=== PATIENT | female | born 1990 | race Caucasian/White ===

== ENCOUNTER → 2018-10-25 | Outpatient (CLI) | payer OTHER ==
[~2018-10-25] MED LIST: CITA20 PO; CYCL10 PO; MUSCLE RELAXER; Norco 5-325 Ta1 EACH PO; Pepcid20 MG PO; Zofran8 MG PO
== END ==
LOC: LAB 17:35 → LAB SHORT 17:35
DX: N89.8 Other specified noninflammatory disorders of vagina (principal)
CPT/HCPCS: 87070; 87147; 87205

== ENCOUNTER 2019-05-19 11:14 | Emergency (ER) | payer OTHER ==
[~2019-05-19] VITALS: Ht 157.5 cm; Wt 68.0 kg
[2019-05-19] MEDS ORDERED: IBUP400 PO (15:14)
== END 2019-05-19 15:57 | disposition home or self-care (01) ==
LOC: ER 11:14
DX: R51 Headache (principal); M54.2 Cervicalgia; Z88.2 Allergy status to sulfonamides
CPT/HCPCS: 96361; 96374; 96375; 99283-25; J0780; J1885; J7120

== ENCOUNTER 2019-05-27 10:20 | Emergency (ER) | payer OTHER ==
[~2019-05-27] VITALS: Ht 160 cm; Wt 68.0 kg
[~2019-05-27 10:20] MED LIST changes: +IBUP400 PO
[2019-05-27 11:21] LABS: BASOPHILS ABSOLUTE AUTO 0.03 K/mm3 (0.00-0.23); BASOPHILS PERCENT AUTO 0 % (0-2); EOSINOPHILS PERCENT AUTO 2 % (0-6); Hematocrit 48.8 % (33.0-51.0); Hemoglobin 15.6 g/dL (11.5-16.0); IMMATURE GRAN ABSOLUTE AUTO 0.01 K/mm3 (0.00-0.10); IMMATURE GRAN PERCENT AUTO 0 % (0-1); LYMPHOCYTES ABSOLUTE AUTO 2.09 K/mm3 (0.84-5.20); LYMPHOCYTES PERCENT AUTO 31 % (21-46); MONOCYTES ABSOLUTE AUTO 0.38 K/mm3 (0.16-1.47); MONOCYTES PERCENT AUTO 6 % (4-13); Mean Corpuscular HGB 29.5 pg (26.0-34.0); Mean Corpuscular Volume 92 fL (80-100); NEUTROPHILS ABSOLUTE AUTO 4.19 K/mm3 (1.96-9.15); NEUTROPHILS PERCENT AUTO 62 % (41-73); RDW Coefficient Variation 12.6 % (11.7-14.2); Red Blood Cell Count 5.28 M/mm3 (3.80-5.20)
[2019-05-27 11:26] LABS: Mean Platelet Volume 11.2 fL (9.1-12.4); Platelet Count 188 K/mm3 (150-400)
[2019-05-27 11:29] LABS: Alanine Aminotransfer (ALT/SGP 21 U/L (12-78); Albumin, Blood 3.9 g/dL (3.4-5.0); Alk Phos 46 U/L (50-136); Anion Gap 8 mmol/L (6-16); Aspartate Aminotrans (AST/SGOT 12 U/L (12-37); Bilirubin, Total 0.3 mg/dL (0.1-1.0); Blood Urea Nitrogen 16 mg/dL (8-24); Bun/Creatinine Ratio 20.6 (12.0-20.0); CO2, Blood 26 mmol/L (21-32); Calcium, Blood 8.9 mg/dL (8.5-10.1); Chloride, Blood 107 mmol/L (98-108); Creatinine, Blood 0.78 mg/dL (0.40-1.00); Globulin, Blood 4.1 g/dL (2.2-4.0); Glomerular Filtration Rate >60 (60-); Glucose, Blood 77 mg/dL (70-99); Potassium, Blood 3.9 mmol/L (3.5-5.5); Sodium, Blood 141 mmol/L (136-145)
[2019-05-27 11:45] LABS: CPK Creatine Kinase 83 U/L (26-193); Magnesium, Blood 2.1 mg/dL (1.6-2.4); Prolactin 5.8 ng/mL
[2019-05-27 11:50] LABS: Creatine Kinase MB <1.0 ng/mL (0.0-3.6); Creatine Kinase MB Index Unable to Calculate (0.0-4.0)
[2019-05-27 11:59] LABS: Source, Urine Clean Catch
[2019-05-27 12:04] LABS: Bilirubin, Urine Neg (Neg); Blood, Urine Neg (Neg); Glucose Qualitative, Urine Neg (Neg); Ketones, Urine Neg (Neg); Leukocyte Esterase, Urine Neg (Neg); Nitrite, Urine Neg (Neg); Protein, Urine Neg (Neg); Specific Gravity, Urine 1.015 (1.003-1.022); Urobilinogen, Urine NORM (Normal)
[2019-05-27 12:32] LABS: Appearance, Urine Clear (Clear); Color, Urine Yellow (P-Yellow)
[2019-05-27] MEDS ORDERED: TEMA7.5 PO (14:36)
== END 2019-05-27 14:41 | disposition home or self-care (01) ==
LOC: ER 10:20
PROVIDERS: Emergency Medicine
DX: M79.10 Myalgia, unspecified site (principal); Z88.8 Allergy status to other drugs, medicaments and biological substances
CPT/HCPCS: 36415; 80053; 81003; 82550; 82553; 83605; 83735; 84146; 85025; 96360; 96361; 99284-25; J7120

== ENCOUNTER 2020-10-15 22:41 | Emergency (ER) | payer OTHER ==
[~2020-10-15] VITALS: Ht 157.5 cm; Wt 77.1 kg
[~2020-10-15 22:41] MED LIST changes: +Cymbalta30 MG PO; +FIORINAL 50-321 EACH PO; +LAMOTRIGINE100 M1 PO; +TEMA7.5 PO; +ZANAFLEX4 M1 PO
== END 2020-10-15 23:57 | disposition home or self-care (01) ==
LOC: ER 22:41
DX: G43.909 Migraine, unspecified, not intractable, without status migrainosus (principal); Z88.8 Allergy status to other drugs, medicaments and biological substances; Z79.899 Other long term (current) drug therapy
CPT/HCPCS: 36415; 96374; 96375; 99283-25; J0780; J1200; J1885; J7030

== ENCOUNTER 2021-01-04 14:52 | Emergency (ER) | payer OTHER ==
[~2021-01-04] VITALS: Ht 157.5 cm; Wt 81.7 kg
== END 2021-01-04 16:36 | disposition home or self-care (01) ==
LOC: ER 14:52
DX: S90.112A Contusion of left great toe without damage to nail, initial encounter (principal); Z88.8 Allergy status to other drugs, medicaments and biological substances; Z79.899 Other long term (current) drug therapy; W20.8XXA Other cause of strike by thrown, projected or falling object, initial encounter; Y92.89 Other specified places as the place of occurrence of the external cause; Y99.0 Civilian activity done for income or pay
CPT/HCPCS: 73660; 99283-25

== ENCOUNTER 2021-01-13 23:19 | Emergency (ER) | payer OTHER ==
[~2021-01-13] VITALS: Ht 165.1 cm; Wt 99.8 kg
[2021-01-13] MEDS ORDERED: RIZATRIPTAN10 M3 PO (23:42)
== END 2021-01-14 02:53 | disposition home or self-care (01) ==
LOC: ER 23:19
DX: R51.9 Headache, unspecified (principal); Z88.8 Allergy status to other drugs, medicaments and biological substances; Z79.899 Other long term (current) drug therapy
CPT/HCPCS: 36415; 96374; 96375; 99283; J1200; J1885; J2405; J7030

== ENCOUNTER 2021-01-25 14:52 | Emergency (ER) | payer OTHER ==
[~2021-01-25] VITALS: Ht 160 cm; Wt 83.5 kg
[~2021-01-25 14:52] MED LIST changes: +RIZATRIPTAN10 M3 PO
== END 2021-01-25 20:59 | disposition home or self-care (01) ==
LOC: ER 14:52
DX: F41.9 Anxiety disorder, unspecified (principal); Z88.8 Allergy status to other drugs, medicaments and biological substances; Z79.899 Other long term (current) drug therapy
CPT/HCPCS: 99283; A9270

== ENCOUNTER 2021-06-24 05:37 | Emergency (ER) | payer OTHER ==
[~2021-06-24] VITALS: Ht 157.5 cm; Wt 81.7 kg
== END 2021-06-24 12:50 | disposition home or self-care (01) ==
LOC: ER 05:37
DX: G43.909 Migraine, unspecified, not intractable, without status migrainosus (principal)
CPT/HCPCS: 96372; 99283-25; J0780; J1200; J1885

== ENCOUNTER 2022-05-02 09:26 | Emergency (ER) | payer OTHER ==
[~2022-05-02] VITALS: Ht 157.5 cm; Wt 86.2 kg
== END 2022-05-02 11:31 | disposition home or self-care (01) ==
LOC: ER 09:26
DX: M43.6 Torticollis (principal); Z79.899 Other long term (current) drug therapy; Z88.8 Allergy status to other drugs, medicaments and biological substances
CPT/HCPCS: A9270; J1885

== ENCOUNTER → 2022-10-26 | Outpatient (CLI) | payer OTHER ==
[2022-10-27 10:54] LABS: Candida species (DNA Probe) Negative (NEGATIVE); G. vaginalis (DNA Probe) Negative (NEGATIVE); T. vaginalis (DNA Probe) Negative (NEGATIVE)
== END | disposition home or self-care (01) ==
LOC: LAB SHORT 15:34
PROVIDERS: Advanced Practice Midwife
DX: N76.0 Acute vaginitis (principal)
CPT/HCPCS: 87480; 87510; 87660

== ENCOUNTER 2023-06-26 19:07 | Emergency (ER) | payer OTHER ==
[~2023-06-26] VITALS: Ht 157.5 cm; Wt 90.7 kg
[2023-06-26 19:36] VITALS: BP 136/100
[2023-06-26] MEDS ORDERED: NEOPOLHCSU BOTHEARS (20:12)
== END 2023-06-26 20:25 | disposition home or self-care (01) ==
LOC: ER 19:07
DX: H60.92 Unspecified otitis externa, left ear (principal); Z88.8 Allergy status to other drugs, medicaments and biological substances; Z79.899 Other long term (current) drug therapy
CPT/HCPCS: A9270

== ENCOUNTER 2023-08-28 16:53 | Emergency (ER) | payer OTHER ==
[~2023-08-28] VITALS: Ht 157.5 cm; Wt 94.3 kg
[~2023-08-28 16:53] MED LIST changes: +NEOPOLHCSU BOTHEARS
[2023-08-28 17:05] VITALS: BP 143/94
[2023-08-28] MEDS ORDERED: LIDO700A20 TOP (19:11)
[2023-08-28] MEDS ORDERED: CYCL10 PO (19:11)
== END 2023-08-28 19:24 | disposition home or self-care (01) ==
LOC: ER 16:53
DX: M54.50 Low back pain, unspecified (principal); Z79.899 Other long term (current) drug therapy; Z88.8 Allergy status to other drugs, medicaments and biological substances
CPT/HCPCS: 96372; 99283-25; A9270; J1885

== ENCOUNTER 2023-12-24 08:53 | Emergency (ER) | payer OTHER ==
[~2023-12-24] VITALS: Ht 157.5 cm; Wt 93.9 kg
[~2023-12-24 08:53] MED LIST changes: +LIDO700A20 TOP
[2023-12-24 09:49] VITALS: BP 152/119
[2023-12-24] MEDS ORDERED: Floxin10 ML RIGHTEAR (10:22)
[2023-12-24] MEDS ORDERED: AMOX-CLAV 875-1 EAC5 PO (10:37)
== END 2023-12-24 10:35 | disposition home or self-care (01) ==
LOC: ER 08:53
DX: H66.41 Suppurative otitis media, unspecified, right ear (principal); H60.91 Unspecified otitis externa, right ear; R51.9 Headache, unspecified; Z97.4 Presence of external hearing-aid; Z88.8 Allergy status to other drugs, medicaments and biological substances
CPT/HCPCS: 99283

== ENCOUNTER 2024-04-25 04:04 | Emergency (ER) | payer OTHER ==
[~2024-04-25] VITALS: Ht 157.5 cm; Wt 90.7 kg
[~2024-04-25 04:04] MED LIST changes: +AMOX-CLAV 875-1 EAC5 PO; +Floxin10 ML RIGHTEAR
[2024-04-25 04:17] VITALS: BP 154/94
[2024-04-25] MEDS ORDERED: Acetaminophen 500 MG Tab PO ONE (04:55)
[2024-04-25] MEDS ORDERED: DIAZ2 PO (04:55)
[2024-04-25] MEDS ORDERED: Diazepam 5 MG Tab PO ONE (04:55)
[2024-04-25] MEDS ORDERED: ACET500 PO (04:55)
[2024-04-25] MEDS ORDERED: Lidocaine 4% 1 Patch TOP ONE (04:55)
[2024-04-25] MEDS ORDERED: PredniSONE 20 MG Tab PO ONE (04:55)
[2024-04-25] MEDS ORDERED: DELTASONE20 MG PO (04:55)
[2024-04-25] MEDS ORDERED: LIDO700A20 TOP (04:56)
== END 2024-04-25 05:06 | disposition home or self-care (01) ==
LOC: ER 04:04
DX: M62.830 Muscle spasm of back (principal); G43.909 Migraine, unspecified, not intractable, without status migrainosus; Z79.899 Other long term (current) drug therapy; Z88.8 Allergy status to other drugs, medicaments and biological substances
CPT/HCPCS: 99282; A9270; J7512

== ENCOUNTER 2024-06-02 22:40 | Emergency (ER) | payer OTHER ==
[~2024-06-02] VITALS: Ht 157.5 cm; Wt 90.7 kg
[~2024-06-02 22:40] MED LIST changes: +ACET500 PO; +DELTASONE20 MG PO; +DIAZ2 PO
[2024-06-02] MEDS ORDERED: Prochlorperazine Edisylate 10 mg Vial IV ONE (23:00)
[2024-06-02] MEDS ORDERED: NS 1,000 ML IV SCH (23:00)
[2024-06-02] MEDS ORDERED: DiphenhydrAMINE HCl 50 MG/ML 1ML Vial IV ONE (23:00)
[2024-06-02] MEDS ORDERED: Ketorolac Tromethamine 30mg Vial IV ONE (23:00)
[2024-06-03 00:32] VITALS: BP 128/84
== END 2024-06-03 00:36 | disposition home or self-care (01) ==
LOC: ER 22:40
DX: G43.909 Migraine, unspecified, not intractable, without status migrainosus (principal); Z79.52 Long term (current) use of systemic steroids; Z79.899 Other long term (current) drug therapy; Z88.8 Allergy status to other drugs, medicaments and biological substances
CPT/HCPCS: 96374; 96375; 99283-25; J0780; J1200; J1885; J7030

== ENCOUNTER 2024-10-08 12:39 | Emergency (ER) | payer OTHER ==
[~2024-10-08] VITALS: Ht 157.5 cm; Wt 90.7 kg
[2024-10-08] MEDS ORDERED: NS 1,000 ML IV SCH (13:25)
[2024-10-08] MEDS ORDERED: Metoclopramide HCl 5MG / ML 2ML Vial IV ONE (13:30)
[2024-10-08 13:36] LABS: BASOPHILS ABSOLUTE AUTO 0.03 K/mm3 (0.00-0.23); BASOPHILS PERCENT AUTO 0 % (0-2); EOSINOPHILS ABSOLUTE AUTO 0.04 K/mm3 (0.00-0.68); EOSINOPHILS PERCENT AUTO 0 % (0-6); Hematocrit 44.2 % (33.0-51.0); Hemoglobin 14.4 g/dL (11.5-16.0); IMMATURE GRAN ABSOLUTE AUTO 0.02 K/mm3 (0.00-0.10); IMMATURE GRAN PERCENT AUTO 0 % (0-1); LYMPHOCYTES ABSOLUTE AUTO 2.42 K/mm3 (0.84-5.20); LYMPHOCYTES PERCENT AUTO 25 % (21-46); MONOCYTES PERCENT AUTO 6 % (4-13); Mean Corpuscular HGB 28.7 pg (26.0-34.0); Mean Corpuscular HGB Conc 32.6 g/dL (31.5-36.5); Mean Corpuscular Volume 88 fL (80-100); Mean Platelet Volume 9.4 fL (9.1-12.4); NEUTROPHILS ABSOLUTE AUTO 6.62 K/mm3 (1.96-9.15); NEUTROPHILS PERCENT AUTO 68 % (41-73); Platelet Count 336 K/mm3 (150-400); RDW Coefficient Variation 13.1 % (11.7-14.2); RDW Standard Deviation 42.5 fL (35.1-46.3); Red Blood Cell Count 5.01 M/mm3 (3.80-5.20); White Blood Cell Count 9.73 K/mm3 (4.00-11.30)
[2024-10-08] MEDS ORDERED: Ketorolac Tromethamine 30mg Vial IV ONE (13:40)
[2024-10-08] MEDS ORDERED: Topiramate 100 MG Tab PO ONE (13:40)
[2024-10-08 13:52] LABS: Source, Urine Clean Catch
[2024-10-08 13:58] LABS: Appearance, Urine Clear (Clear); Bilirubin, Urine Neg (Neg); Blood, Urine 5+ (Neg); Glucose Qualitative, Urine Neg (Neg); Ketones, Urine Neg (Neg); Leukocyte Esterase, Urine Neg (Neg); Nitrite, Urine Neg (Neg); Protein, Urine Neg (Neg); Specific Gravity, Urine 1.015 (1.003-1.022); Urobilinogen, Urine NORM (Normal)
[2024-10-08 14:00] LABS: Magnesium, Blood 2.2 mg/dL (1.6-2.4); Prolactin 8.8 ng/mL
[2024-10-08 14:01] LABS: Albumin, Blood 3.7 g/dL (3.4-5.0); Bilirubin, Total 0.3 mg/dL (0.1-1.0); Bun/Creatinine Ratio 16.3 (12.0-20.0); Calcium, Blood 9.5 mg/dL (8.5-10.1); Creatinine, Blood 0.8 mg/dL (0.40-1.00); Globulin, Blood 3.7 g/dL (2.2-4.0); Potassium, Blood 3.5 mmol/L (3.5-5.5); Total Protein, Blood 7.4 g/dL (6.4-8.2)
[2024-10-08 14:07] LABS: Color, Urine Pale Yellow (P-Yellow)
[2024-10-08 14:08] LABS: Bacteria Few /hpf; Red Blood Cells, Urine 0-2 /hpf (0-2); Squamous Epithelial Cells Few /hpf (Few); White Blood Cells, Urine 0-2 /hpf (0-5)
[2024-10-08 15:00] VITALS: BP 143/108
[2024-10-08] MEDS ORDERED: REGLAN1013 PO (15:55)
[2024-10-08] MEDS ORDERED: TOPI50 PO (15:55)
== END 2024-10-08 16:00 | disposition home or self-care (01) ==
LOC: ER 12:39
PROVIDERS: Student in an Organized Health Care Education/Training Program
DX: R56.9 Unspecified convulsions (principal); G43.909 Migraine, unspecified, not intractable, without status migrainosus; Z88.8 Allergy status to other drugs, medicaments and biological substances
CPT/HCPCS: 80053; 81001; 83735; 84146; 84703; 85025; 96361; 96374; 96375; 99284-25; A9270; J1885; J2765; J7030

== ENCOUNTER 2025-03-24 21:25 | Emergency (ER) | payer OTHER ==
[~2025-03-24] VITALS: Ht 170.2 cm; Wt 90.7 kg
[~2025-03-24 21:25] MED LIST changes: +REGLAN1013 PO; +TOPI50 PO
[2025-03-24] MEDS ORDERED: Prochlorperazine Edisylate 10 mg Vial IV ONE (22:40)
[2025-03-24] MEDS ORDERED: DiphenhydrAMINE HCl 50 MG/ML 1ML Vial IV ONE (22:40)
[2025-03-25] MEDS ORDERED: Tetracaine HCl/Pf 0.5% Opth Soln 4 ml RIGHTEYE ONE (01:20)
[2025-03-25] MEDS ORDERED: Fluorescein Sod 1MG Opth Strips RIGHTEYE ONE (01:20)
[2025-03-25 02:03] LABS: BASOPHILS ABSOLUTE AUTO 0.03 K/mm3 (0.00-0.23); BASOPHILS PERCENT AUTO 0 % (0-2); EOSINOPHILS ABSOLUTE AUTO 0.11 K/mm3 (0.00-0.68); EOSINOPHILS PERCENT AUTO 1 % (0-6); Hematocrit 42.8 % (33.0-51.0); Hemoglobin 14.1 g/dL (11.5-16.0); IMMATURE GRAN ABSOLUTE AUTO 0.01 K/mm3 (0.00-0.10); IMMATURE GRAN PERCENT AUTO 0 % (0-1); LYMPHOCYTES ABSOLUTE AUTO 2.74 K/mm3 (0.84-5.20); LYMPHOCYTES PERCENT AUTO 34 % (21-46); MONOCYTES ABSOLUTE AUTO 0.49 K/mm3 (0.16-1.47); MONOCYTES PERCENT AUTO 6 % (4-13); Mean Corpuscular HGB 28.7 pg (26.0-34.0); Mean Corpuscular HGB Conc 32.9 g/dL (31.5-36.5); Mean Corpuscular Volume 87 fL (80-100); Mean Platelet Volume 9.8 fL (9.1-12.4); NEUTROPHILS ABSOLUTE AUTO 4.66 K/mm3 (1.96-9.15); NEUTROPHILS PERCENT AUTO 58 % (41-73); Platelet Count 303 K/mm3 (150-400); RDW Coefficient Variation 12.9 % (11.7-14.2); RDW Standard Deviation 41.3 fL (35.1-46.3); Red Blood Cell Count 4.91 M/mm3 (3.80-5.20); White Blood Cell Count 8.04 K/mm3 (4.00-11.30)
[2025-03-25 02:21] LABS: Albumin, Blood 3.4 g/dL (3.4-5.0); Albumin/Globulin Ratio 1.1 (0.8-1.8); Bilirubin, Total 0.5 mg/dL (0.1-1.0); Bun/Creatinine Ratio 18.9 (12.0-20.0); Calcium, Blood 8.5 mg/dL (8.5-10.1); Creatinine, Blood 0.74 mg/dL (0.40-1.00); Globulin, Blood 3.2 g/dL (2.2-4.0); Potassium, Blood 3.8 mmol/L (3.5-5.5); Total Protein, Blood 6.6 g/dL (6.4-8.2)
[2025-03-25 03:15] VITALS: BP 136/91
[2025-03-25] MEDS ORDERED: AMOCLA875 PO (04:53)
== END 2025-03-25 03:20 | disposition home or self-care (01) ==
LOC: ER 21:25
PROVIDERS: Student in an Organized Health Care Education/Training Program
DX: G43.909 Migraine, unspecified, not intractable, without status migrainosus (principal); H66.92 Otitis media, unspecified, left ear; Z88.8 Allergy status to other drugs, medicaments and biological substances; Z79.899 Other long term (current) drug therapy
CPT/HCPCS: 80053; 85025; 85651; 96374; 96375; 99284-25; A9270; J0780; J1200

== ENCOUNTER 2025-07-04 14:16 | Emergency (ER) | payer OTHER ==
[~2025-07-04] VITALS: Ht 160 cm; Wt 86.2 kg
[~2025-07-04 14:16] MED LIST changes: +AMOCLA875 PO
[2025-07-04] MEDS ORDERED: ONDA4ODT MM (15:19)
[2025-07-04] MEDS ORDERED: Ondansetron 4 MG SoluTab SL ONE (15:20)
[2025-07-04 15:29] VITALS: BP 130/87
== END 2025-07-04 15:30 | disposition home or self-care (01) ==
LOC: ER 14:16
DX: I10 Essential (primary) hypertension (principal); Z88.8 Allergy status to other drugs, medicaments and biological substances; Z79.899 Other long term (current) drug therapy; Z59.89 Other problems related to housing and economic circumstances
CPT/HCPCS: 99282; A9270

== ENCOUNTER 2025-10-10 09:15 | Emergency (ER) | payer OTHER ==
[~2025-10-10] VITALS: Ht 157.5 cm; Wt 90.7 kg
[~2025-10-10 09:15] MED LIST changes: +ONDA4ODT MM
[2025-10-10 09:40] VITALS: BP 133/99
== END 2025-10-10 11:45 | disposition left against medical advice (07) ==
LOC: ER 09:15
DX: H57.11 Ocular pain, right eye (principal); Z79.899 Other long term (current) drug therapy; Z88.8 Allergy status to other drugs, medicaments and biological substances
CPT/HCPCS: 99282

== ENCOUNTER 2025-10-27 15:22 | Emergency (ER) | payer OTHER ==
[~2025-10-27] VITALS: Ht 157.5 cm; Wt 93.0 kg
[2025-10-27 15:25] VITALS: BP 154/102
[2025-10-27 16:05] LABS: BASOPHILS ABSOLUTE AUTO 0.05 K/mm3 (0.00-0.23); BASOPHILS PERCENT AUTO 0 % (0-2); EOSINOPHILS ABSOLUTE AUTO 0.04 K/mm3 (0.00-0.68); EOSINOPHILS PERCENT AUTO 0 % (0-6); Hematocrit 46.4 % (33.0-51.0); Hemoglobin 15.1 g/dL (11.5-16.0); IMMATURE GRAN ABSOLUTE AUTO 0.08 K/mm3 (0.00-0.10); IMMATURE GRAN PERCENT AUTO 1 % (0-1); LYMPHOCYTES ABSOLUTE AUTO 3.05 K/mm3 (0.84-5.20); LYMPHOCYTES PERCENT AUTO 23 % (21-46); MONOCYTES ABSOLUTE AUTO 0.72 K/mm3 (0.16-1.47); MONOCYTES PERCENT AUTO 6 % (4-13); Mean Corpuscular HGB Conc 32.5 g/dL (31.5-36.5); Mean Corpuscular Volume 90 fL (80-100); NEUTROPHILS ABSOLUTE AUTO 9.08 K/mm3 (1.96-9.15); NEUTROPHILS PERCENT AUTO 70 % (41-73); NRBC ABSOLUTE 0.00 K/mm3 (0.00-0.02); NRBC Auto 0.0 /100 WBC (0.0-0.2); Platelet Count 335 K/mm3 (150-400); RDW Coefficient Variation 12.8 % (11.7-14.2); RDW Standard Deviation 42.5 fL (35.1-46.3)
[2025-10-27 16:33] LABS: Alanine Aminotransfer (ALT/SGP 22.0 U/L (12-78); Albumin, Blood 4.1 g/dL (3.4-5.0); Albumin/Globulin Ratio 1.0 (0.8-1.8); Anion Gap 7.0 mmol/L (3-11); Aspartate Aminotrans (AST/SGOT 15.0 U/L (12-37); Bilirubin, Total 0.4 mg/dL (0.1-1.0); Blood Urea Nitrogen 14.0 mg/dL (8-24); CO2, Blood 25.0 mmol/L (21-32); Calcium, Blood 9.1 mg/dL (8.5-10.1); Chloride, Blood 104.0 mmol/L (98-108); Creatinine, Blood 0.75 mg/dL (0.40-1.00); Globulin, Blood 4.0 g/dL (2.2-4.0); Glucose, Blood 79.0 mg/dL (70-99); Potassium, Blood 3.7 mmol/L (3.5-5.5); Sodium, Blood 132.0 mmol/L (136-145); Total Protein, Blood 8.1 g/dL (6.4-8.2)
== END 2025-10-27 18:39 | disposition left against medical advice (07) ==
LOC: ER 15:22
PROVIDERS: Emergency Medicine
DX: G40.909 Epilepsy, unspecified, not intractable, without status epilepticus (principal); Z53.29 Procedure and treatment not carried out because of patient's decision for other reasons; Z88.8 Allergy status to other drugs, medicaments and biological substances; Z79.899 Other long term (current) drug therapy
CPT/HCPCS: 80053; 84703; 85025; 99283